=== PATIENT | male | born 1970 | race Caucasian/White ===

== ENCOUNTER 2019-09-30 02:13 | Emergency (ER) | payer SELFPAY ==
[~2019-09-30] VITALS: Ht 177.8 cm; Wt 113.0 kg
[~2019-09-30 02:13] MED LIST: EPINEPHrine SYRINGE 1 MG/10 ML SYRINGE ONE
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
== END 2019-09-30 02:21 | disposition expired ==
LOC: ER 02:13
DX: S01.412A Laceration without foreign body of left cheek and temporomandibular area, initial encounter (principal); I46.9 Cardiac arrest, cause unspecified; F41.9 Anxiety disorder, unspecified; W18.39XA Other fall on same level, initial encounter; Y93.89 Activity, other specified; Y92.89 Other specified places as the place of occurrence of the external cause; Y99.8 Other external cause status
CPT/HCPCS: 31500; 92950; 99285; J0171